=== PATIENT | male | born 2000 | race Caucasian/White ===

== ENCOUNTER 2021-05-28 16:40 | Emergency (ER) | payer BC ==
[~2021-05-28] VITALS: Ht 180.3 cm; Wt 108.9 kg
[2021-05-28 16:42] VITALS: BP 156/93
[2021-05-28] MEDS ORDERED: ADDERALL XR 2525 MG PO (16:45)
[2021-05-28] MEDS ORDERED: CEPHALEXIN500 MG PO (17:26)
== END 2021-05-28 18:42 | disposition home or self-care (01) ==
LOC: ER 16:40
DX: S61.412A Laceration without foreign body of left hand, initial encounter (principal); F12.90 Cannabis use, unspecified, uncomplicated; Z79.899 Other long term (current) drug therapy; W26.0XXA Contact with knife, initial encounter; Y93.89 Activity, other specified; Y92.89 Other specified places as the place of occurrence of the external cause; Y99.8 Other external cause status